=== PATIENT | female | born 1950 | race Caucasian/White ===

== ENCOUNTER → 2024-03-01 14:17 | Outpatient (REF) | payer MEDICARE, OTHER, SELFPAY | LOC: WDC 14:17 | PROVIDERS: ATTENDING PHYSICIAN Obstetrics & Gynecology; FAMILY PHYSICIAN Family Medicine | DX: Z12.31 Encounter for screening mammogram for malignant neoplasm of breast (principal) | CPT/HCPCS: 77063; 77067 ==

== ENCOUNTER 2024-09-30 14:47 | Emergency (ER) | payer MEDICARE, OTHER, SELFPAY ==
[2024-09-30 14:47] VITALS: BMI 19.5
[2024-09-30 14:49] VITALS: BP 174/90
--- NOTE | 2024-09-30 14:54 | ED.GENMED ---
ED Provider Triage
<Renata Hernandez PA-C - Last Filed: 09/30/24 15:00>
-
Patient seen by provider in Triage?: Seen in Triage
Attestation: A medical screening examination has been initiated by a qualified medical provider. Based on the assessment performed at this time, it has been determined that an emergent medical condition may exist and the patient has been informed
that further medical evaluation and possible additional diagnostic testing may be needed.
HPI: 74yoF here with increasing BP and nagging headache x 2 weeks. Feels different than typical migraines. Also having intermittent flushing. BP normally low.
GENERAL: Alert , in no apparent distress
EYE: No visual abnormalities.
NECK: Trachea midline
ENT: No visible abnormalities.
LUNGS: No acute respiratory distress
NEUROLOGICAL: Alert and oriented
SKIN: Skin intact. No visible changes.
MUSCULOSKELETAL: Moving extremities normally
PSYCH: Normal and appropriate interaction.
This is a medical evaluation conducted in person to initiate diagnostic evaluation and provide initial therapeutics. Please see further documentation by the treating clinician.
Cardiac labs, EKG, and CT head ordered.
History of Present Illness
<Renata Hernandez PA-C - Last Filed: 09/30/24 15:00>
General
Chief Complaint: Blood Pressure Problem
Time Seen by Provider: 09/30/24 15:13
<Melina Gramajo DO - Last Filed: 09/30/24 22:32>
History of Present Illness
History of Present Illness:
74-year-old female with history of migraines and hyperlipidemia presenting to the emergency department for concern of elevated blood pressure. Patient reports in the past 2 weeks she has noticed that her blood pressure has been elevating. She
reports that she usually runs on the low end with systolic in the 90s. She has recently had some doctors appointments who had incidentally was noticed to have high blood pressure. A few days ago she had infusion for her migraine treatment, was
noted to have a blood pressure in the 140s systolic. She subsequently made an appoint with her primary care doctor and her systolic was in the 120s so she was not started on any medication. She reports that she has been feeling flushed and has had
a headache which feels different than her typical migraine. She notes family history of high blood pressure and cardiac disease. Denies any associated chest pain or difficulty breathing. Denies visual changes. Denies weakness or numbness to her
extremities. Denies additional acute medical complaints.
Phy Exam
<Melina Gramajo DO - Last Filed: 09/30/24 22:32>
Physical Exam
Physical Exam:
General: Well-appearing, no clinical signs of dehydration, nontoxic and in no acute distress
HEENT: protecting airway
Neck: appears supple
CV: Normal heart rate, regular rhythm
Resp: No accessory muscle use, no increased work of breathing, lungs clear to auscultation bilaterally
Abd: Soft and non-distended, no tenderness to palpation
Extremities: No deformities, no swelling
Neuro: alert, no focal neurologic deficit
: deferred
Rectal: deferred
Psych: Normal affect
Skin: Intact
Course
<Renata Hernandez PA-C - Last Filed: 09/30/24 15:00>
Orders/Labs/Results
Orders:
Orders
09/30/24 14:51
Electrocardiogram (*1) Urgent
Reason for Study: Hypertension, Benign
EKG- Treatment ONCE
09/30/24 14:59
CT Head W/o Iv Contrast Urgent
Comment:
Reason For Exam: Headache, HTN
09/30/24 15:07
Complete Blood Count/With Diff Urgent
Comprehensive Metabolic Panel Urgent
Free T4 Urgent
TSH Reflex To Free T4 Urgent
Comment: ADD ON
Troponin I Urgent
09/30/24 15:40
Add On- LAB Urgent
Tests Added?: TSH w/ reflex T4
09/30/24 18:43
CT Head & Neck Angio W/wo IV Urgent
Comment:
Reason For Exam: worsening headache
Abnormal Lab Results
09/30/24
15:07
Carbon Dioxide 31 H mmol/L
(22-30)
BUN 23 H mg/dl
(7-17)
Glucose 107 H mg/dl
(70-99)
TSH (Reflex) 0.40 L uIU/ml
(0.47-4.68)
09/30/24 15:07
09/30/24 15:07
Vital Signs
Initial and Last Documented VS:
Initial Vital Signs
Temp Pulse Resp BP Pulse Ox
97.4 F 84 20 174/90 97
09/30/24 14:49 09/30/24 14:49 09/30/24 14:49 09/30/24 14:49 09/30/24 14:49
Last Documented Vital Signs
Temp Pulse Resp BP Pulse Ox
97.4 F 69 17 130/70 100
09/30/24 14:49 09/30/24 21:44 09/30/24 21:44 09/30/24 21:44 09/30/24 21:44
<Melina Gramajo, DO - Last Filed: 09/30/24 22:32>
Orders/Labs/Results
Orders:
Orders
09/30/24 14:51
Electrocardiogram (*1) Urgent
Reason for Study: Hypertension, Benign
EKG- Treatment ONCE
09/30/24 14:59
CT Head W/o Iv Contrast Urgent
Comment:
Reason For Exam: Headache, HTN
09/30/24 15:07
Complete Blood Count/With Diff Urgent
Comprehensive Metabolic Panel Urgent
Free T4 Urgent
TSH Reflex To Free T4 Urgent
Comment: ADD ON
Troponin I Urgent
09/30/24 15:40
Add On- LAB Urgent
Tests Added?: TSH w/ reflex T4
09/30/24 18:43
CT Head & Neck Angio W/wo IV Urgent
Comment:
Reason For Exam: worsening headache
Abnormal Lab Results
09/30/24
15:07
Carbon Dioxide 31 H mmol/L
(22-30)
BUN 23 H mg/dl
(7-17)
Glucose 107 H mg/dl
(70-99)
TSH (Reflex) 0.40 L uIU/ml
(0.47-4.68)
09/30/24 15:07
09/30/24 15:07
Vital Signs
Initial and Last Documented VS:
Initial Vital Signs
Temp Pulse Resp BP Pulse Ox
97.4 F 84 20 174/90 97
09/30/24 14:49 09/30/24 14:49 09/30/24 14:49 09/30/24 14:49 09/30/24 14:49
Last Documented Vital Signs
Temp Pulse Resp BP Pulse Ox
97.4 F 69 17 130/70 100
09/30/24 14:49 09/30/24 21:44 09/30/24 21:44 09/30/24 21:44 09/30/24 21:44
<Melina Gramajo DO - Last Filed: 09/30/24 22:32>
MDM/Problems Addressed
MDM/Problems Addressed:
74-year-old female presenting to the emergency department for headache and elevated blood pressure. Vital signs on arrival are significant for high blood pressure.
On exam patient is resting comfortably, no acute distress or discomfort. Unremarkable cardiac, pulmonary, neurologic exam. No focal neurologic deficits. Patient reports a mild headache, does have some flushing to her skin, otherwise is
asymptomatic. At this time low suspicion for hypertensive urgency or emergency. Patient reports longstanding family history of high blood pressure. Suspect patient may have underlying diagnosis of hypertension. EKG obtained on arrival, no acute
ischemic abnormality. Will screen with laboratory analysis. Plan for CT imaging of the brain given headache.
18:40 -patient's labs are unremarkable and CT without acute intracranial abnormality. Patient's blood pressure has normalized without intervention. On reassessment, still appears flushed and is complaining of occipital headache, which feels
different than her typical migraine. This reason we will proceed with CT angio imaging
22:30 - CT angio negative. Blood pressure remained stable. At this time feel stable for discharge, however with close interval follow-up with her primary care doctor. Return precautions discussed and patient verbalized understanding
<Melina Gramajo DO - Last Filed: 09/30/24 22:32>
*EKG
Interpreted by ED Provider?: Yes
EKG Intrepretation Date: 09/30/24
EKG Intrepretation Time: 15:38
Interpretation: normal
Comparison EKG: no comparison EKG present
Heart Rate: 76
Rate: normal
Rhythm: sinus
[place]: normal axis
Interval: normal interval
QRS Pattern: normal QRS
Ischemia: no ischemia
*Critical Care Note
Total Time (30-74mins, 75-104mins- exclusive of procedures): Not Applicable
ED Attending Note
<Renata Hernandez PA-C - Last Filed: 09/30/24 15:00>
-
Portions of this chart may have been created with voice recognition software.� Occasional wrong word or��sound alike� substitutions may have occurred due to the inherent limitations of voice recognition software.
Discharge Plan
Departure
Patient Disposition: Home (Routine Discharge)
Date of Disposition: 09/30/24
Time of Disposition: 22:31
Patient with high blood pressure during this ER visit?: Yes
Condition: Good
Discharge Problem:
Headache, High blood pressure
Instructions: BLOOD PRESSURE
Referrals:
Nicole Fortune MD [Family Provider] -
Activity Restrictions/Additional Instructions:
You were seen in the emergency department for headache and elevated blood pressure
You were found to have normal imaging of your head and laboratory analysis. Your blood pressure improved while in the emergency department.
Please follow-up closely with your primary care physician.
Return to the emergency department for any worsening of your symptoms, or any development of chest pain, difficulty breathing, abdominal pain with persistent vomiting and inability to tolerate food or liquid by mouth (concern for dehydration),
weakness, headache or confusion, fever greater than 100.4, or any additional symptoms that are concerning to you.
Thank you for choosing [facility].
Interventions
Interventions:
*Risk Screen - Suicide Last Done: 09/30/24 16:09
*General Assessment Last Done: 09/30/24 14:49
*Neglect/Abuse Screening Last Done: 09/30/24 16:09
ED- Fall Risk Assessment Last Done: 09/30/24 15:53
*ED COVID-19 Vaccine History Last Done: 09/30/24 16:09
ED- Cardiac Assessment Last Done: 09/30/24 15:53
ED- Neurological Assessment Last Done: 09/30/24 15:53
ED- Pulmonary Assessment Last Done: 09/30/24 15:53
Discharge Date and Time
Print Language: GEORGIAN
[2024-09-30 15:15] LABS: % Basophils 0.7 % (0-2); % Eosinophils 0.7 % (0-6); % Immature Granulocytes 0.3 % (0-0.5); % Lymphocytes 20.8 % (20.5-51.1); % Monocytes 6.4 % (1.7-9.3); % Neutrophils 71.1 % (42.2-75.2); Absolute Basophils 0.1 10^3/uL (0-0.2); Absolute Eosinophils 0.1 10^3/uL (0-0.7); Absolute Lymphocytes 1.6 10^3/uL (1.2-3.4); Absolute Monocytes 0.5 10^3/uL (0.1-0.6); Absolute Neutrophils 5.5 10^3/uL (1.4-6.5); Hematocrit 39.3 % (37.0-47.0); Hemoglobin 13.2 g/dL (12.0-16.0); Mean Corp Hgb Conc. 33.6 g/dL (33.0-37.0); Mean Corpuscular Hgb 30.9 pg (27.0-31.0); Nucleated Red Blood Cells % 0 %; Platelet Count 305 10^3/uL (130-400); Red Blood Cell Count 4.27 10^6/uL (4.20-5.40); Red Cell Dist. Width 12.2 % (11.5-14.5); White Blood Cell Count 7.7 10^3/uL (4.8-10.8)
[2024-09-30 15:27] LABS: ALT (SGPT) 32 U/L (0-35); AST (SGOT) 30 U/L (14-36); Albumin 4.4 g/dl (3.5-5.0); Alkaline Phosphatase 62 U/L (38-126); Blood Urea Nitrogen 23 mg/dl (7-17); Calcium 10.2 mg/dl (8.4-10.2); Carbon Dioxide 31 mmol/L (22-30); Chloride 101 mmol/L (98-107); Glucose 107 mg/dl (70-99); Potassium 4.5 mmol/L (3.5-5.1); Sodium 138 mmol/L (135-145); Total Bilirubin 0.2 mg/dl (0.2-1.3); Total Protein 6.7 g/dl (6.3-8.2); eGFR > 60.00
[2024-09-30 15:38] LABS: Troponin I < 0.012 ng/ml
[2024-09-30 16:00] VITALS: BP 124/69
[2024-09-30 17:16] VITALS: BP 107/58
[2024-09-30 18:02] LABS: Free T4 1.01 ng/dl (0.78-2.19)
[2024-09-30 21:44] VITALS: BP 130/70
[2024-09-30 22:42] VITALS: BP 103/72
== END 2024-09-30 22:42 | disposition home or self-care (01) ==
LOC: EMR 14:47
PROVIDERS: Emergency Medicine; EMERGENCY PHYSICIAN Student in an Organized Health Care Education/Training Program; FAMILY PHYSICIAN Family Medicine
DX: R51.9 Headache, unspecified (principal); I10 Essential (primary) hypertension; E78.5 Hyperlipidemia, unspecified
CPT/HCPCS: 99285; 70450; 70496; 70498; 80053; 84439; 84443; 84484; 85025; 93005; Q9967

== ENCOUNTER → 2024-12-12 10:04 | Outpatient (REF) | payer MEDICARE, OTHER, SELFPAY | LOC: MRI 3T 10:04 | PROVIDERS: ATTENDING PHYSICIAN Obstetrics & Gynecology; FAMILY PHYSICIAN Family Medicine | DX: R92.2 Inconclusive mammogram (principal) | CPT/HCPCS: 77049; A9585 ==

== ENCOUNTER → 2025-03-24 08:55 | Outpatient (REF) | payer MEDICARE, OTHER, SELFPAY | LOC: RAD 08:55 | PROVIDERS: ATTENDING PHYSICIAN Internal Medicine Cardiovascular Disease; FAMILY PHYSICIAN Family Medicine | DX: I82.90 Acute embolism and thrombosis of unspecified vein (principal) | CPT/HCPCS: 36415; 71275; 82565; Q9967 ==